=== PATIENT | female | born 1995 | race American Indian/Alaskan Native ===

== ENCOUNTER 2017-03-24 14:37 | Emergency (ER) | payer SELFPAY ==
[2017-03-24 16:03] VITALS: BP 112/80
[2017-03-24 16:46] LABS: Hematocrit 36.6 % (30.3-42.9); Hemoglobin 11.2 gm/dl (10.1-14.3); Mean Corpuscular HGB Conc 31 % (30-34); Mean Corpuscular Volume 75 fl (79-97); Platelet Count 289 K/mm3 (140-440); Red Blood Count 4.91 M/mm3 (3.65-5.03); Red Cell Distribution Width 16.6 % (13.2-15.2); White Blood Count 6.4 K/mm3 (4.5-11.0)
[2017-03-24 16:47] LABS: Alanine Aminotransferase 15 units/L (7-56); Albumin 4.1 g/dL (3.9-5); Albumin/Globulin Ratio 1.2 %; Alkaline Phosphatase 62 units/L (35-129); Anion Gap 16 mmol/L; BUN/Creatinine Ratio 18; Blood Urea Nitrogen 9 mg/dL (7-17); Carbon Dioxide 25 mmol/L (22-30); Chloride 101.6 mmol/L (98-107); Glucose 77 mg/dL (65-100); Lipase 35 units/L (13-60); Sodium 139 mmol/L (137-145); Total Protein 7.6 g/dL (6.3-8.2)
[2017-03-24 16:50] LABS: Mean Corpuscular Hemoglobin 23 pg (28-32)
[2017-03-24 17:21] LABS: Anisocytosis 1+; Basophils % (Manual) 0 % (0.0-1.8); Blastocytes % (Manual) 0 %; Elliptocytes Few; Hypochromasia 1+
[2017-03-24 17:22] LABS: Diff Status Complete
== END 2017-03-24 17:50 | disposition left against medical advice (07) ==
LOC: ED 14:37
DX: R10.9 Unspecified abdominal pain (principal); Z53.21 Procedure and treatment not carried out due to patient leaving prior to being seen by health care provider
CPT/HCPCS: 36415; 80053; 83690; 84703; 85007; 85025